=== PATIENT | male | born 1980 | race Two or more races ===

== ENCOUNTER 2021-01-30 21:50 | Emergency (ER) | payer OTHER ==
[~2021-01-30] VITALS: Ht 162.6 cm; Wt 68.2 kg
--- NOTE | 2021-01-30 22:51 | RAD ---
EXAM: 2 views right tibia/fibula 3 views of the right ankle DATE: 01/30/2021 10:22 PM INDICATION: Reason: injury w/ pain / Spl. Instructions: / History: COMPARISON: No Prior FINDINGS: No acute fracture or dislocation. Ankle mortise is congruent. Talar dome is intact. Joint spaces are preserved without significant degenerative/proliferative change. No significant soft tissue swelling. Plantar calcaneal enthesophyte. IMPRESSION: No acute fracture or dislocation. Electronically signed by: Eze Naranjo MD (01/30/2021 10:48 PM) ALONDRA
[2021-01-30] MEDS ORDERED: MORPHINE SULFATE 2 MG/ML INJ. IM ONE (23:00)
[2021-01-30 23:30] VITALS: BP 98/58
--- NOTE | 2021-01-30 23:39 | PHYS DOC ---
Past Medical History Past Medical History: No Pertinent History (BLAKE GARNER DO) Past Surgical History: No Surgical History (AFTAB AMEZCUA) Drug Use: None (BLAKE GARNER DO) General Adult EDM: Chief Complaint: MECHANICAL FALL HPI: HPI: Patient is a 40 year old male who presents with right ankle pain after an injury at work. 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 He was standing on a step stool to change the soap dispenser inside the manager of pharmacy, when he lost his footing and inverted his right foot. Patient reports he was able to ambulate after the injury, though it was painful. He has never injured this ankle before. He denies any other pain, including the lower leg or knee. Patient has no other complaints at this time. (AFTAB AMEZCUA) Review of Systems: Review of Systems: ROS negative except as mentioned in HPI. (AFTAB AMEZCUA) Heart Score: C/O Chest Pain: No (AFTAB AMEZCUA) Current Medications: Current Medications Medications (Trade) Dose Ordered Sig/Dominique Start Time Stop Time Status Last Admin Dose Admin Morphine Sulfate (Morphine Sulfate) 2 mg 1X ONCE 01/30/21 23:00 01/30/21 23:01 DC 01/30/21 22:21 2 MG (AFTAB AMEZCUA) Allergies: Allergies: Allergies Coded Allergies Type Severity Reaction Last Updated Verified No Known Drug Allergies 01/30/21 No (AFTAB AMEZCUA) Physical Exam: PE: Constitutional: Well developed, well nourished, no acute distress, non-toxic elma earance. Neck: Normal range of motion, no step-offs, no midline tenderness, no paraspinal tenderness. Cardiovascular: Heart rate regular rhythm, no murmur. Lungs & Thorax: Bilateral breath sounds clear to auscultation. Skin: Warm, dry, no erythema, no rash, no abrasion, no laceration. Back: No step-offs, no midline tenderness, no paraspinal tenderness. Extremities: Right ankle is wrapped in gauze and Coban initially. Upon removal, ankle is mildly swollen without bony point tenderness. Extremities otherwise no tenderness, no cyanosis, no clubbing, ROM intact, no edema. Neurovascular intact in lower extremities x2. (AFTAB AMEZCUA) Current Patient Data: Vital Signs: Vital Signs Date Time Temp Pulse Resp B/P (MAP) Pulse Ox O2 Delivery O2 Flow Rate FiO2 01/30/21 23:30 64 98/58 (71) 97 Room Air 01/30/21 23:00 60 113/61 (78) 98 Room Air 01/30/21 22:21 18 98 Room Air 01/30/21 21:58 97.3 76 18 139/71 (93) 98 Room Air 97.3 (AFTAB AMEZCUA) Radiology/Procedures: Radiology/Procedures: EXAM: 2 views right tibia/fibula 3 views of the right ankle DATE: 01/30/2021 10:22 PM INDICATION: Reason: injury w/ pain / Spl. Instructions: / History: COMPARISON: No Prior FINDINGS: No acute fracture or dislocation. Ankle mortise is congruent. Talar dome is intact. Joint spaces are preserved without significant degenerative/proliferative change. No significant soft tissue swelling. Plantar calcaneal enthesophyte. IMPRESSION: No acute fracture or dislocation. Electronically signed by: Eze Naranjo MD (01/30/2021 10:48 PM) ALONDAR (AFTAB AMEZCUA) Course & Med Decision Making: Course & Med Decision Making Pertinent Labs and Imaging studies reviewed. (See chart for details) Patient is an otherwise healthy 32-year male who presents with isolated injury to his right ankle. Plain films ordered. There is no acute fracture or dislocation seen on plain films. Patient will be placed in ankle stirrup splint and discharged home with instruction to use ibuprofen for pain and swelling. He is instructed to follow-up with orthopedic doctor in the next 10-14 days should his symptoms not improve. Patient understands and is agreeable to discharge plan. (AFTAB AMEZCUA) Dragon Disclaimer: Dragon Disclaimer: This electronic medical record was generated, in whole or in part, using a voice recognition dictation system. (AFTAB AMEZCUA) Departure Departure Impression: Primary Impression: Sprain of unspecified ligament of right ankle, initial encounter Disposition: HOME / SELF CARE / HOMELESS Condition: STABLE Referrals: NO PCP (PCP) JUAN MENJIVAR Jr. DO Patient Instructions: Ankle Sprain, [id number], RICE - Routine Care for Injuries, [id number] Additional Instructions: Maria Luisa 600mg ibuprofen (Advil, Motrin) cada 6 horas para el dolor. Si menard dolor no es mejor en 10-14 benítez, llama al Dr. Menjivar para yanely kamla para mas evaluacion y tratamiento. Regresa al departamento si el dolor no esta controlada en casa. Attending Signature Attending Signature I have reviewed the PA/PROTEIN CHEMIST's note and plan of care. I was available for consultation as needed during the patient's visit in the emergency department. I agree with the clinical impression, plan, and disposition. (BLAKE GARNER DO) AFTAB AMEZCUA Jan 30, 2021 23:39 BLAKE GARNER DO Jan 31, 2021 00:08
== END 2021-01-30 23:44 | disposition home or self-care (01) ==
LOC: ER 21:50
DX: S93.401A Sprain of unspecified ligament of right ankle, initial encounter (principal); X50.9XXA Other and unspecified overexertion or strenuous movements or postures, initial encounter; Y93.89 Activity, other specified; Y92.89 Other specified places as the place of occurrence of the external cause; Y99.8 Other external cause status
CPT/HCPCS: 29515; 73590; 73610; 96372; 99284; J2270